=== PATIENT | male | born 1965 | race Caucasian/White ===

== ENCOUNTER 2023-12-21 17:10 | Observation (INO) | payer BC ==
[2023-12-21] MEDS ORDERED: Lidocaine 1% with EPINEPHrine 1:100,000 20 ML MDV INJECT ONE (17:31)
[2023-12-21] MEDS ORDERED: Sodium Chloride 0.9% 500 ML IV SCH (17:45)
[2023-12-21 17:54] LABS: BASOPHILS ABSOLUTE AUTO 0.07 K/uL (0.00-0.10); BASOPHILS PERCENT AUTO 1.2 % (0.1-1.3); EOSINOPHILS ABSOLUTE AUTO 0.09 K/uL (0.00-0.40); EOSINOPHILS PERCENT AUTO 1.6 % (0.0-5.4); HEMATOCRIT 48.8 % (38.4-49.7); HEMOGLOBIN 17.2 g/dL (12.9-16.9); IMMATURE GRAN PERCENT AUTO 0.2 % (0.0-0.7); LYMPHOCYTES ABSOLUTE AUTO 1.52 K/uL (0.8-3.3); LYMPHOCYTES PERCENT AUTO 26.6 % (11.4-47.7); MEAN CORPUSCULAR HEMOGLOBIN 30.9 pg (31.6-35.5); MEAN CORPUSCULAR HGB CONC 35.2 g/dL (31.6-35.5); MEAN CORPUSCULAR VOLUME 87.6 fL (81.4-99.0); MONOCYTES ABSOLUTE AUTO 0.58 K/uL (0.20-0.90); MONOCYTES PERCENT AUTO 10.2 % (3.3-12.6); NEUTROPHILS ABSOLUTE AUTO 3.44 K/uL (1.0-7.6); NEUTROPHILS PERCENT AUTO 60.2 % (40.0-78.1); PLATELET COUNT,PLT 175 K/uL (130-375); RED BLOOD CELL COUNT 5.57 M/uL (4.14-5.76); WHITE BLOOD CELL COUNT,WBC 5.7 K/uL (3.2-11.0)
[2023-12-21] MEDS: Sodium Chloride 0.9% 500 ML IV ONE (17:55)
[2023-12-21 17:56] LABS: IMMATURE GRAN ABSOLUTE AUTO 0.01 K/uL (0.00-0.23)
[2023-12-21] MEDS: HYDROmorphone 0.5 MG/0.5 ML Syringe IVPUSH ONE (17:58)
[2023-12-21] MEDS: Ondansetron 4 MG/2 ML SDV IVPUSH ONE (17:58)
[2023-12-21 18:15] LABS: A/G RATIO 1.2 (1.2-2.2); ALANINE AMINOTRANSFERASE,ALT 47 U/L (12-78); ALBUMIN 4.1 g/dL (3.4-5.0); ALKALINE PHOSPHATASE 155 U/L (46-116); ANION GAP 6.7 mmol/L (5.0-14.0); ASPARTATE AMNIOTRANSFERASE,AST 22 U/L (15-37); BILIRUBIN TOTAL 0.7 mg/dL (0.2-1.0); BLOOD UREA NITROGEN,BUN 21 mg/dL (7-18); CALCIUM 10.6 mg/dL (8.5-10.1); CARBON DIOXIDE,CO2 29 mmol/L (21-32); CHLORIDE,CL 104 mmol/L (100-108); CREATININE 1.2 mg/dL (0.8-1.3); EST CRCL DRUG DOSING (CG) 63.33 mL/min; ESTIMATED GFR 69 mL/min (>60); GLUCOSE RANDOM 115 mg/dL (74-106); POTASSIUM,K 4.1 mmol/L (3.6-5.2); PROTEIN TOTAL,TP 7.6 g/dL (6.4-8.2); SODIUM,NA 140 mmol/L (140-148)
[2023-12-21] MEDS: Iopamidol 612 MG/ML 100 ML Bottle IV SCH (19:11)
[2023-12-21] MEDS: Sodium Chloride 0.9% 60 ML IV SCH (19:11)
[2023-12-21 19:32] LABS: APPEARANCE,URINE CLEAR (CLEAR); BILIRUBIN,URINE NEGATIVE (NEGATIVE); COLOR,URINE YELLOW (YELLOW); GLUCOSE,URINE NEGATIVE (NEGATIVE); KETONES,URINE NEGATIVE (NEGATIVE); LEUKOCYTE ESTERASE,URINE NEGATIVE (NEGATIVE); NITRITE,URINE NEGATIVE (NEGATIVE); OCCULT BLOOD,URINE NEGATIVE (NEGATIVE); PROTEIN,URINE NEGATIVE (NEGATIVE); UROBILINOGEN,URINE 0.2 EU/dL (0.2-1.0)
[2023-12-21 19:52] LABS: AMORPHOUS SEDIMENT,URINE NOT SEEN; BACTERIA,URINE NOT SEEN; EPITHELIAL CELLS,URINE RARE; MUCUS,URINE NOT SEEN; RBC,URINE 0-5 (0-5); WBC,URINE 0-5 (0-5)
[2023-12-21] MEDS: Piperacillin/Tazobactam 4.5 GM in Sodium Chloride 0.9% 100 ML IV ONE (22:37)
[2023-12-21] MEDS: Pantoprazole 40 MG Tab.CR PO STA (22:37)
[2023-12-21] MEDS: Sodium Chloride 0.9% 1,000 ML IV SCH (22:37)
[2023-12-21] MEDS ORDERED: Ondansetron 4 MG Tab.DIS PO PRN (23:46)
[2023-12-21] MEDS ORDERED: Melatonin 3 MG Tab PO PRN (23:46)
[2023-12-21] MEDS ORDERED: Naloxone 0.4 MG/ML SDV IVPUSH PRN (23:46)
[2023-12-21] MEDS ORDERED: Ondansetron 4 MG/2 ML SDV IV PRN (23:46)
[2023-12-21] MEDS ORDERED: Magnesium Hydroxide 400 MG/5 ML Susp 30 ML Cup PO PRN (23:46)
[2023-12-22] MEDS: Metoprolol Tartrate 25 MG Tab PO SCH (00:38)
[2023-12-22] MEDS: Acetaminophen 325 MG Tab PO PRN (03:41)
[2023-12-22 05:28] LABS: HEMATOCRIT 45.6 % (38.4-49.7); HEMOGLOBIN 16.2 g/dL (12.9-16.9); MEAN CORPUSCULAR HEMOGLOBIN 31.2 pg (31.6-35.5); MEAN CORPUSCULAR HGB CONC 35.5 g/dL (31.6-35.5); MEAN CORPUSCULAR VOLUME 87.9 fL (81.4-99.0); RED BLOOD CELL COUNT 5.19 M/uL (4.14-5.76); WHITE BLOOD CELL COUNT,WBC 5.7 K/uL (3.2-11.0)
[2023-12-22] MEDS: Piperacillin/Tazobactam 4.5 GM in Sodium Chloride 0.9% 100 ML IV SCH (05:38)
[2023-12-22 05:43] LABS: CALCIUM 9.7 mg/dL (8.5-10.1); CREATININE 1.2 mg/dL (0.8-1.3); EST CRCL DRUG DOSING (CG) 63.57 mL/min; POTASSIUM,K 4.2 mmol/L (3.6-5.2)
[2023-12-22 05:48] LABS: ANION GAP 10.2 mmol/L (5.0-14.0)
[2023-12-22] MEDS: Pantoprazole 40 MG Tab.CR PO SCH (07:32)
[2023-12-22] MEDS ORDERED: Glycopyrrolate 0.2 MG/ML 5 ML MDV ONE (10:42)
[2023-12-22] MEDS ORDERED: Propofol 200 MG/20 ML SDV ONE (10:42)
[2023-12-22] MEDS ORDERED: Dexamethasone 4 MG/ML SDV ONE (10:42)
[2023-12-22] MEDS ORDERED: Rocuronium 50 MG/5 ML Vial ONE (10:42)
[2023-12-22] MEDS ORDERED: Succinylcholine 200 MG/10 ML MDV ONE (10:42)
[2023-12-22] MEDS ORDERED: Neostigmine Methylsulfate 10 MG/10 ML MDV ONE (10:42)
[2023-12-22] MEDS ORDERED: Ondansetron 4 MG/2 ML SDV ONE (10:42)
[2023-12-22] MEDS ORDERED: fentaNYL 250 MCG/5 ML SDV ONE (10:43)
[2023-12-22] MEDS: Rosuvastatin 10 MG Tab PO SCH (11:19)
[2023-12-22] MEDS: Piperacillin/Tazobactam/Dext 4.5 GM in Premix Bag 1 BAG IV SCH ×2 (11:36→14:03)
[2023-12-22] MEDS ORDERED: fentaNYL 100 MCG/2 ML SDV ONE (11:58)
[2023-12-22] MEDS: Bupivacaine 0.25%/EPINEPHrine 1:200,000 30 ML SDV ONE (12:55)
[2023-12-22] MEDS ORDERED: Lactated Ringers 1,000 ML ONE (13:00)
[2023-12-22] MEDS ORDERED: Bupivacaine 0.25%/EPINEPHrine 1:200,000 30 ML SDV ONE (13:29)
[2023-12-22] MEDS ORDERED: Piperacillin/Tazobactam/Dext 4.5 GM in Premix Bag 1 BAG IV SCH (14:00)
[2023-12-22] MEDS: HYDROmorphone 0.5 MG/0.5 ML Syringe IVPUSH PRN (14:08)
[2023-12-22] MEDS: Acetaminophen/oxyCODONE 325-5 MG Tab PO PRN (15:39)
[2023-12-22] MEDS: Ketorolac 30 MG/ML SDV IVPUSH PRN (17:44)
[2023-12-22] MEDS: Sennosides/Docusate Sodium 50-8.6 MG Tab PO PRN (20:10)
[2023-12-22] MEDS ORDERED: Pantoprazole 40 MG Tab.CR PO ONE (21:50)
== END 2023-12-23 10:15 | disposition home or self-care (01) ==
LOC: JP.ED 17:10 → JP.MS 21:43 → INTOOBSV 21:43
PROVIDERS: ADMIT Registered Nurse; ATTEND Hospitalist
DX: K80.12 Calculus of gallbladder with acute and chronic cholecystitis without obstruction (principal); E78.00 Pure hypercholesterolemia, unspecified; I10 Essential (primary) hypertension; Z79.82 Long term (current) use of aspirin; Z79.899 Other long term (current) drug therapy
CPT/HCPCS: 00790; 36415; 47562; 71046; 74177; 80048; 80053; 81001; 83690; 85025; 85027; 86140; 93010; 96361; 96374; 96375; 99222; 99232; 99238; 99285; A9270; C1894; J0330; J1100; J1171; J1596; J1885; J2405; J2543; J2704; J2710; J3010; J3490; J7030; J7040; J7120; Q9967; 88304